=== PATIENT | female | born 1965 | race Two or more races ===

== ENCOUNTER 2024-11-28 18:27 | Emergency (ER) | payer MEDICAID, SELFPAY ==
--- NOTE | 2024-11-28 18:31 | EKG_ITS ---
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
[2024-11-28 19:02] VITALS: BP 143/79; PULSE 66; RESP 18; TEMP 37; O2SAT 95
[2024-11-28 19:03] VITALS: BMI 28.3
--- NOTE | 2024-11-28 19:17 | EDNOTE_ITS ---
ED Chest Pain RME/HPI General Chief Complaint: Chest Pain Stated Complaint: CHEST PAIN RADIATING LEFT ARM X 2 DAYS Time Seen by Provider: 11/28/24 19:06 Source: patient Arrival date/time: 11/28/24 18:27 Mode of arrival: ambulatory Limitations: no limitations RME / HPI RME / HPI narrative: 59-year-old female presents to the ED with a complaint of intermittent chest pain up to 6 different times within the last 3 months. Also complains of pain that travels from her mid sternum up and then down to her left upper extremity. Patient denies pain and chest pain right now. MD complaint: chest pain Onset (ago): month(s) (Up to 6 different events in the last 3 months.) Duration: intermittent Pain location: substernal and left chest Severity: moderate Severity scale (1-10): 4 Exacerbating factors: other (Sleeping) Related Data On Oral Contraceptives: No Previous Rx's ?Medication ?Instructions ?Recorded acetaminophen 325 mg capsule 975 mg (3 x 325 mg) PO Q6 H PRN 01/12/20 pain #30 caps ibuprofen 400 mg tablet 400 mg PO Q8H PRN pain #12 t abs 10/21/21 naproxen 500 mg tablet 500 mg PO BID PRN pain #30 t abs 01/31/23 ondansetron 4 mg disintegrating 4 mg PO Q8H PRN nausea and 01/31/23 tablet vomiting #30 tabs acetaminophen-caffeine 500 mg-65 1 tab PO Q6H PRN pain #30 tabs 12/18/23 mg tablet (Excedrin Tension Headache) ibuprofen 600 mg tablet 600 mg PO Q6H #30 tabs 12/17 Allergies Allergy/AdvReac Type Severity Reaction Status Date / Time No Known Allergies Allergy Verified 11/28/24 18:31 Review of Systems Constitutional Constitutional: Reports system reviewed and no additional complaints, except as documented Eyes Eyes: Reports system reviewed and no additional complaints, except as documente d, Denies dry eyes, Denies exophthalmos and Reports floaters Cardiovascular Cardiovascular: Denies chest pain with activity and Denies claudication ED Exam General Limitations: Present no limitations General appearance: Present alert and in no apparent distress Head Head exam: Present atraumatic Eye Eye exam: Present normal appearance and EOMI ENT ENT exam: Present normal exam, normal oropharynx and mucous membranes moist Neck Neck exam: Present normal inspection, full ROM and trachea midline Chest Chest inspection: Present normal inspection and symmetric chest wall rise Respiratory Respiratory exam: Present normal lung sounds bilaterally Cardiovascular Cardiovascular exam: Present regular rate, normal rhythm and normal heart sounds Abdominal Exam Abdominal exam: Present soft and normal bowel sounds Extremities Exam Extremities exam: Present normal inspection and full ROM Back Exam Back exam: Present normal inspection and full ROM Neurological Exam Neurological exam: Present alert and oriented X3 Psychiatric Psychiatric exam: Present normal affect and normal mood Skin Skin exam: Present warm, dry, intact and normal color Course Course Course Narrative: CBC, CMP, troponin, chest x-ray, EKG magnesium. Quality Measures none Orders Category Date Time Status EKG (ED ONLY) *Do not use* NOW Care 11/28/24 18:31 Completed EKG (ED Only) Stat Exams 11/28/24 18:31 Draft XR chest 2V Stat Exams 11/28/24 19:28 Completed BNP [B-Type Natriuretic Peptide] Stat Lab 11/28/24 19:56 Completed Magnesium Stat Lab 11/28/24 19:56 Completed Troponin I Stat Lab 11/28/24 19:56 Completed Done Vital Signs Vital signs: Vital Signs Temperature 98.6 F 11/28/24 19:02 Pulse Rate 66 11/28/24 19:02 Respiratory Rate 18 11/28/24 19:02 Blood Pressure 143/79 H 11/28/24 19:02 Pulse Oximetry (%) 95 11/28/24 19:02 Oxygen Delivery Method Room Air 11/28/24 19:02 Pulse ox is 95% room air Chest Pain MDM Narrative MDM Narrative:: Troponin, CBC, CMP, chest x-ray, EKG, all are within her normal limits and there is no acute processes taking place. Patient will be discharged in no apparent distress and she has follow-up with primary care physician this coming week. She may return if her chest pain with pain radiating to the left upper extremity return. Patient data External records reviewed:: Other (specify) Clinical information provided by:: none Social determinants that could affect healthcare access:: none Patient has the following chronic illnesses:: Hypertension, diabetes How is presenting disease/condition affected by chronic disease/condition?: caused by (Hypertension and type 2 diabetes) Evaluation data The following diagnostics were reviewed and interpreted by me:: lab results and radiology exam(s) Lab and/or radiology exams considered but not ordered:: Lab results and radiology results support discharge. Interpretation Summary: N/A Medications / Prescriptions Medications or Prescriptions considered but not ordered:: N/A Medication administrations:: None Consultations Consultation(s) initiated? (list below): No Diagnosis Chest Pain Differential Diagnosis: fracture of rib, unstable angina pectoris and atypical chest pain Most likely diagnosis given after review of the tests above:: Atypical chest pain Admission Indicated Admission indicated?: not indicated Admission Request Was there a request for admission?: No Disposition Plan Disposition Plan: Discharge Discharge Attestation Discharge Attestation: The patient and all family members were given an opportunity to ask questions and understood the discharge instructions. Discharge instructions specifically effects, indications for sooner follow up or return to the emergency department, and the expected course of current diagnosis. Patient condition: Stable Discharge Plan Plan Patient Disposition: HOME (Self Care) Discharge Disposition comment: Discharge in no apparent distress, patient is to follow-up with primary care physician for referral to cardiology as necessary. Prescriptions/Referrals Prescriptions/Med Rec: No Action acetaminophen 325 mg capsule 975 mg PO Q6H PRN (Reason: pain) Qty: 30 0RF ibuprofen 400 mg tablet 400 mg PO Q8H PRN (Reason: pain) Qty: 12 0RF naproxen 500 mg tablet 500 mg PO BID PRN (Reason: pain) Qty: 30 0RF ondansetron 4 mg tablet,disintegrating 4 mg PO Q8H PRN (Reason: nausea and vomiting) Qty: 30 0RF Excedrin Tension Headache 500-65 mg tablet 1 tab PO Q6H PRN (Reason: pain) Qty: 30 0RF ibuprofen 600 mg tablet 600 mg PO Q6H Qty: 30 0RF Referrals: Girish Delong PA-C [Primary Care Provider] - In 1 week Problem List Clinical Impression: Atypical chest pain Patient/Caregiver Discharge Instructions Discharge Activity: activity as tolerated Print Language: British Stand Alone Forms: Deysi Award Info., Patient Portal Info Letter 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
--- NOTE | 2024-11-28 19:28 | XR_ITS ---
Examination: Chest PA lateral 2 views TECHNIQUE: Upright PA and lateral chest 2 views Date and time: November 28, 20242055 hours INDICATIONS: Chest pain radiating to the left arm beginning 2 days ago FINDINGS: Normal heart size Lungs are clear Scarring in the lingular segment No pneumonia or pulmonary edema IMPRESSION: No pneumonia or pulmonary edema
[2024-11-28 20:27] LABS: Magnesium 1.3 mg/dL (1.6-2.6)
[2024-11-28 20:28] LABS: B-Type Natriuretic Peptide < 20 pg/mL (0-100)
[2024-11-28 21:18] LABS: Troponin I < 0.002 ng/mL (0.0-0.045)
[2024-11-28 22:08] VITALS: BP 135/76; PULSE 72; RESP 16; TEMP 36.8; O2SAT 98
== END 2024-11-28 22:10 | disposition home or self-care (01) ==
PROVIDERS: Physician Assistant; Emergency Provider Emergency Medicine; PCP Physician Assistant
DX: R07.89 Other chest pain (principal)
CPT/HCPCS: 36415; 71046; 83735; 83880; 84484; 93005; 99283

== ENCOUNTER 2025-06-01 04:28 | Emergency (ER) | payer MEDICAID, SELFPAY ==
[2025-06-01 04:41] VITALS: BP 130/78; PULSE 73; RESP 17; TEMP 37.1; O2SAT 96
--- NOTE | 2025-06-01 04:43 | EKG_ITS ---
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
--- NOTE | 2025-06-01 05:24 | XR_ITS ---
EXAMINATION: PA chest single view TECHNIQUE: Upright PA chest single view Date and time: June 01, 2025, 0532 hours, comparison November 28, 2024 INDICATIONS: Chest pain beginning 4 days ago. FINDINGS: Normal heart size. Lungs are clear. Osseous structures are intact. IMPRESSION: No active disease
--- NOTE | 2025-06-01 05:25 | PD.EDRME ---
Rapid Medical Screening Exam [facility] Arrival date/time: 06/01/25 04:28 59F with history of GERD, DM, HTN, hysterectomy, and appendectomy presents to ED with several days of epigastric pain. Patient denies N/V and URI symptoms. Patient states this feels like a gastritis flare. Patient takes omeprazole daily as prescribed. Chief Complaint: Abdominal Pain Vital signs: Vital Signs Temperature 98.7 F 06/01/25 04:41 Pulse Rate 73 06/01/25 04:41 Respiratory Rate 17 06/01/25 04:41 Blood Pressure 130/78 06/01/25 04:41 Pulse Oximetry (%) 96 06/01/25 04:41 Oxygen Delivery Method Room Air 06/01/25 04:41 Exam: No ab tenderness. Normal WOB. Clinical Impression: gastritis vs pancreatitis vs ACS vs biliary disease
[2025-06-01] MEDS: FAMOTIDINE 20 MG TABLET 40 MG PO (05:33)
[2025-06-01] MEDS: LIDOCAINE VISCOUS 2% 15 ML UDC PO (05:34)
[2025-06-01] MEDS: MG HYD/AL HYD/SIME (Maalox Reg) SUSP 30 ML UDC PO (05:35)
[2025-06-01 06:01] LABS: Basophils # (Auto) 0.0 Thou/mm3 (0.0-0.2); Basophils % (Auto) 0 % (0-2.5); Eosinophils # (Auto) 0.1 Thou/mm3 (0.0-0.5); Eosinophils % (Auto) 2 % (0-10); Hematocrit 36.2 % (36.0-46.0); Hemoglobin 12.1 g/dL (12.0-16.0); Immature Granulocytes Auto 0.01 Thou/mm3 (0.00-0.00); Lymphocytes # (Auto) 2.3 Thou/mm3 (1.0-4.8); Lymphocytes % (Auto) 35 % (10-50); Mean Corpuscular HGB Conc 33.4 g/dl (31.0-37.0); Mean Corpuscular Hemoglobin 30.6 pg (25.0-35.0); Mean Corpuscular Volume 92 fL (80-100); Monocytes # (Auto) 0.4 Thou/mm3 (0.0-0.8); Monocytes % (Auto) 6 % (0-12); Neutrophils # (Auto) 3.9 Thou/mm3 (1.8-7.7); Neutrophils % (Auto) 57 % (37-80); Nucleated Red Blood Cell # 0.00 Thou/mm3 (0.00-0.00); Nucleated Red Blood Cell % 0 /100 WBC (0); Platelet Count 228 Thou/mm3 (140-440); RDW Standard Deviation 41.6 fL (36.4-46.3); Red Blood Count 3.95 Miln/mm3 (4.00-5.20); White Blood Count 6.7 Thou/mm3 (3.6-11.0)
[2025-06-01 06:28] LABS: Alanine Aminotransferase 12 U/L (10-49); Albumin, Serum 4.7 gm/dL (3.5-5.0); Albumin/Globulin Ratio 1.7 (1.2-2.2); Alkaline Phosphatase 75 U/L (46-116); Anion Gap 11 (7-16); Aspartate Amino Transferase 20 U/L (0-34); BUN/Creatinine Ratio 20 Ratio (12-20); Bilirubin,Total 1.0 mg/dL (0.3-1.2); Blood Urea Nitrogen 24 mg/dL (9-23); Calcium 10.0 mg/dL (8.3-10.6); Calcium (Corrected) 10.0 mg/dL (8.5-10.1); Carbon Dioxide 27.7 mMol/L (20.0-31.0); Chloride 104 mMol/L (98-107); Creatinine (Component) 1.2 mg/dL (0.6-1.3); Globulin 2.7 gm/dL (2.3-3.5); Glucose 138 mg/dL (74-106); Lipase 52 U/L (12-53); Osmolality,Calculated 290 (275-295); Potassium 4.0 mMol/L (3.4-5.1); Sodium 143 mMol/L (136-145); Total Protein 7.4 gm/dL (5.7-8.2); Troponin I < 0.002 ng/mL (0.0-0.045); eGFR 52 See Note
[2025-06-01 07:17] VITALS: BP 132/84; PULSE 62; RESP 16; TEMP 36.9; O2SAT 97
[2025-06-01 08:32] VITALS: BP 120/75; PULSE 63; RESP 18; TEMP 36.8; O2SAT 97
--- NOTE | 2025-06-01 09:26 | PD.EDABDPN ---
ED Abdominal Pain RME/HPI General Chief Complaint: Abdominal Pain Stated complaint: EPIGASTRIC/CHEST AREA PAIN Time seen by provider: 06/01/25 05:31 Arrival date/time: 06/01/25 04:28 Source: patient Mode of arrival: ambulatory Limitations: no limitations RME / HPI complaint: abdominal pain Onset (ago): day(s) Consistency: constant Location: epigastric Severity: moderate Severity scale (1-10): 5 Radiation: none Migration to: no migration Relieving factors: nothing Exacerbating factors: nothing RME / HPI narrative: 06/01/25 04:28 59F with history of GERD, DM, HTN, hysterectomy, and appendectomy presents to ED with several days of epigastric pain. Patient denies N/V and URI symptoms. Patient states this feels like a gastritis flare. Patient takes omeprazole daily as prescribed. Patient also have epigastric symptoms and reflux symptoms There is no radiation of this pain with activity Denies any vomiting or diarrhea or fever chills or night sweats Blood work today was negative Chest x-ray was negative and EKG was unremarkable Patient takes omeprazole Going to add Pepcid and also change propranolol to Protonix Exam: No ab tenderness. Normal WOB. Impression: gastritis vs pancreatitis vs ACS vs biliary disease Related Data Previous Rx's ?Medication ?Instructions ?Recorded acetaminophen 325 mg capsule 975 mg (3 x 325 mg) PO Q6H PRN 01/12/20 pain #30 caps ibuprofen 400 mg tablet 400 mg PO Q8H PRN pain #12 tabs 10/21/21 naproxen 500 mg tablet 500 mg PO BID PRN pain #30 tabs 01/31/23 ondansetron 4 mg disintegrating 4 mg PO Q8H PRN nausea and 01/31/23 tablet vomiting #30 tabs acetaminophen-caffeine 500 mg-65 1 tab PO Q6H PRN pain #30 tabs 12/18/23 mg tablet (Excedrin Tension Headache) ibuprofen 600 mg tablet 600 mg PO Q6H #30 tabs 12/18/23 pantoprazole 40 mg tablet,delayed 40 mg PO QDAY #30 tabs 06/01/25 release (Protonix) Allergies Allergy/AdvReac Type Severity Reaction Status Date / Time No Known Allergies Allergy Verified 06/01/25 04:29 Review of Systems Review of Systems Systems Reviewed: All systems reviewed, normal except as documented Past Medical History Past Medical History Comments PMH COMMENT: Hypertension ED Exam Narrative Physical exam: General, patient is alert oriented x 4 Not in distress well-nourished Head and neck, atraumatic normocephalic Pupils equal reactive, ENT exam no mucous membranes Neck is supple tracheal stenosis was not large Chest, no chest tenderness Normal air entry bilaterally No added sounds Cardiovascular, normal heart sounds, no murmurs, no gallop, regular rate and rhythm Abdominal, soft nontender no enlarged organs Normal renal angles, bowel sounds are normal no organomegaly Genitourinary, no abdominal hernias, normal genitalia Lower extremity, no edema, no redness, no deformity Musculoskeletal, no joint effusion, no joint tenderness, Neuro, muscle power equal bilaterally, cranial nerves intact, no sensory deficits, no ataxia Skin, no rash no petechiae General Limitations: Present no limitations Course Quality Measures none Orders Category Date Time Status EKG (ED ONLY) *Do not use* NOW Care 06/01/25 04:43 Completed EKG (ED Only) Stat Exams 06/01/25 04:43 Draft XR chest 1V portable Stat Exams 06/01/25 05:24 Completed CBC Stat Lab 06/01/25 05:36 Completed Comprehensive Metabolic Panel Stat Lab 06/01/25 05:36 Completed Lipase Stat Lab 06/01/25 05:36 Completed Troponin I Stat Lab 06/01/25 05:36 Completed Famotidine [Pepcid] Med 06/01/25 05:24 Discontinued 40 mg PO X1 ONE Lidocaine 2% Viscous [Xylocaine 2% Viscous] Med 06/01/25 05:24 Discontinued 15 ml PO X1 ONE Pantoprazole [Protonix] Med 06/01/25 09:24 Discontinued 40 mg PO X1 ONE mg Hyd/Al Hyd/Manuel Susp [Maalox Susp] Med 06/01/25 05:24 Discontinued 30 ml PO X1 ONE Vital Signs Vital signs: Vital Signs Temperature 98.7 F 06/01/25 04:41 Pulse Rate 73 06/01/25 04:41 Respiratory Rate 17 06/01/25 04:41 Blood Pressure 130/78 06/01/25 04:41 Pulse Oximetry (%) 96 06/01/25 04:41 Oxygen Delivery Method Room Air 06/01/25 04:41 Abdominal Pain MDM MDM Narrative MDM Narrative:: EKG showed normal sinus rhythm with rate of 70 no ischemia normal intervals Chest x-ray was negative Labs unremarkable Final diagnosis GERD and gastritis Plan Protonix Discontinue resolved Pepcid Follow-up with MD Patient data External records reviewed:: [facility] previous records Clinical information provided by:: patient Social determinants that could affect healthcare access:: none Patient has the following chronic illnesses:: Hypertension How is presenting disease/condition affected by chronic disease/condition?: no chronic disease Evaluation data The following diagnostics were reviewed and interpreted by me:: lab results, radiology exam(s) and EKG tracing(s) Lab and/or radiology exams considered but not ordered:: As above Interpretation Summary: As above Medications / Prescriptions Medications or Prescriptions considered but not ordered:: Pepcid Medication administrations:: Medication Administration History Discontinued Medications Al Hydrox/Mg Hydrox/Simethicone (Mg Hyd/Al Hyd/Manuel (Maalox Reg) Susp 30 Ml Udc) 30 ml PO X1 ONE Stop: 06/01/25 05:25 Last Admin: 06/01/25 05:35 Dose: 30 ml Documented By: CVL Famotidine (Famotidine 20 Mg Tablet) 40 mg PO X1 ONE Stop: 06/01/25 05:25 Last Admin: 06/01/25 05:33 Dose: 40 mg Documented By: CVL Lidocaine HCl (Lidocaine Viscous 2% 15 Ml Udc) 15 ml PO X1 ONE Stop: 06/01/25 05:25 Last Admin: 06/01/25 05:34 Dose: 15 ml Documented By: CVL Pantoprazole Sodium (Pantoprazole 40 Mg Tablet) 40 mg PO X1 ONE Stop: 06/01/25 09:25 Discontinue omeprazole Consultations Consultation(s) initiated? (list below): No Diagnosis Differential diagnosis abdominal pain: other Most likely diagnosis given after review of the tests above:: Gastritis and GERD Admission Indicated Admission indicated?: not indicated Admission Request Was there a request for admission?: No Disposition Plan Disposition Plan: Discharge Discharge Attestation Discharge Attestation: The patient and all family members were given an opportunity to ask questions and understood the discharge instructions. Discharge instructions specifically effects, indications for sooner follow up or return to the emergency department, and the expected course of current diagnosis. Patient condition: Stable Discharge Plan Plan Patient Disposition: HOME (Self Care) Patient condition on transfer: Stable Prescriptions/Referrals Prescriptions/Med Rec: New pantoprazole [Protonix] 40 mg tablet,delayed release (DR/EC) 40 mg PO QDAY Qty: 30 0RF No Action acetaminophen 325 mg capsule 975 mg PO Q6H PRN (Reason: pain) Qty: 30 0RF ibuprofen 400 mg tablet 400 mg PO Q8H PRN (Reason: pain) Qty: 12 0RF naproxen 500 mg tablet 500 mg PO BID PRN (Reason: pain) Qty: 30 0RF ondansetron 4 mg tablet,disintegrating 4 mg PO Q8H PRN (Reason: nausea and vomiting) Qty: 30 0RF Excedrin Tension Headache 500-65 mg tablet 1 tab PO Q6H PRN (Reason: pain) Qty: 30 0RF ibuprofen 600 mg tablet 600 mg PO Q6H Qty: 30 0RF Referrals: Devang Leigh PA-C [Primary Care Provider] - In 1 week Problem List Clinical Impression: Chest pain due to GERD, Gastritis Patient/Caregiver Discharge Instructions Education Materials: Tips to Control Acid Reflux, ED Chest Pain, Noncardiac, ED GERD (Adult), ED PEPTIC ULCER vs GASTRITIS Print Language: French Stand Alone Forms: Deysi Award Info., Patient Portal Info Letter
[2025-06-01] MEDS: PANTOPRAZOLE 40 MG TABLET PO (09:44)
== END 2025-06-01 10:09 | disposition home or self-care (01) ==
PROVIDERS: Physician Assistant; Emergency Provider Emergency Medicine; PCP Physician Assistant
DX: K29.70 Gastritis, unspecified, without bleeding (principal); K21.9 Gastro-esophageal reflux disease without esophagitis; R07.9 Chest pain, unspecified; R94.31 Abnormal electrocardiogram [ECG] [EKG]; I10 Essential (primary) hypertension
CPT/HCPCS: 36415; 71045; 80053; 83690; 84484; 85025; 93005; 99283; J3490; A9270